=== PATIENT | male | born 1985 | race Caucasian/White ===

== ENCOUNTER 2023-12-10 20:55 | Emergency (ER) | payer BC, SELFPAY ==
[2023-12-10 21:01] VITALS: BP 139/88
--- NOTE | 2023-12-10 21:58 | ED.GENMED ---
History of Present Illness
General
Chief Complaint: Musculo-Skeletal Complaint
Source: patient
Time Seen by Provider: 12/10/23 21:45
Travel History
Have you had any contact with someone who has COVID-19?: No
Do you have any symptoms of coronavirus? Fever > 100 degrees, chills, cough, shortness of breath, sore throat, loss of taste or smell, muscle aches, or headache?: No
History of Present Illness
History of Present Illness:
38-year-old male presenting to the emergency department for evaluation of left knee injury sustained while playing volleyball stating he attempted to jump and felt a popping sensation and noticed deformity to the proximal portion of the patella. He
states he has significant pain when attempting knee flexion. Notes a history of some chronic pain to both knees but states this is very different. No other injury sustained.
Past History
Past History
ED Past Medical History: None
ED Past Surgical History: Cholecystectomy and Orthopedic
Social History
Tobacco: Non-smoker
Alcohol: Occasional
Drug: None
Personal:
Living: with family
Employment: Employed
Review of Systems
Review of Systems
All Other Systems: ROS reviewed and negative except as documented in HPI and ROS
Phy Exam
Physical Exam
Physical Exam:
GENERAL: Alert , in no apparent distress
EYE: conjunctiva clear
Head: Normocephalic atraumatic
NECK: Supple,
ENT: mmm.
LUNGS: no acute respiratory distress
NEUROLOGICAL: Alert and oriented
SKIN: Warm and dry, skin intact.
MUSCULOSKELETAL: Left knee: Deformity at the proximal patella. There does appear to be a deformity of the patella itself as well. Patient has limited range of motion with knee flexion secondary to the pain. There does appear to be a deformity at
the quadriceps tendon as well as the inferior portion of the patella tendon. Remainder of extremity is warm well-perfused and neurovascularly intact.
PSYCH: Normal and appropriate interaction.
Scores
Heart Failure Risk
Heart Failure Risk Score: Not Applicable
Heart Score for Chest Pain Patients
STEMI patient?: Not applicable
Withdrawal Assessment of Alcohol
Withdrawal Assessment Completed?: Not applicable
Course
Orders/Labs/Results
Orders:
Orders
12/10/23 21:06
Knee, Left 4 or More Views [CR Knee - Left 4 Or More View*] Urgent
Comment:
Reason For Exam: left knee pain, pt felt pop in knee cap
12/10/23 22:01
Crutches-Treatment ONCE
Knee Immobilizer Left-Treatmen ONCE
Vital Signs
Initial and Last Documented VS:
Initial Vital Signs
Temp Pulse Resp BP Pulse Ox
98.5 F 114 18 139/88 96
12/10/23 21:01 12/10/23 21:01 12/10/23 21:01 12/10/23 21:01 12/10/23 21:01
Last Documented Vital Signs
Temp Pulse Resp BP Pulse Ox
98.5 F 114 18 139/88 96
12/10/23 21:01 12/10/23 21:01 12/10/23 21:01 12/10/23 21:01 12/10/23 21:01
MDM/Problems Addressed
Differential Diagnosis Includes:
Patella tendon rupture, quadriceps tendon rupture, patella fracture
MDM/Problems Addressed:
38-year-old male present emergency department for evaluation of left knee pain and deformity while playing in a volleyball game stating he did not fall onto the knee but noticed deformity while attempting to jump. Based off patient's physical exam
I am most concerned for either quadriceps tendon injury or patella tendon injury. X-ray shows an avulsive injury of the patella and I do have concern for patella tendon rupture. Patient be placed in a knee immobilizer, crutches, NSAIDs/Tylenol for
pain. He will follow-up with [facility] orthopedics with whom he is seen before for previous knee injuries.
*Radiology
Radiology exam reviewed: preliminary read by ED provider (Patella fracture with concern for patella tendon rupture)
*Pulse Oximetry
Patient hypoxic: no
*Critical Care Note
Total Time (30-74mins, 75-104mins- exclusive of procedures): Not Applicable
ED Attending Note
-
Portions of this chart may have been created with voice recognition software.� Occasional wrong word or��sound alike� substitutions may have occurred due to the inherent limitations of voice recognition software.
Discharge Plan
Departure
Patient Disposition: Home (Routine Discharge)
Date of Disposition: 12/10/23
Time of Disposition: 21:59
Patient with high blood pressure during this ER visit?: Yes
Discharge Problem:
Fracture of left patella, injury of patella tendon
Instructions: Quadriceps and Patellar Tendon Injuries
Prescriptions:
No Action
diphenhydramine HCl [Banophen] 25 MG capsule
25 mg PO DAILY
multivitamin with folic acid [Tab-A-Gabriel] 1 TABLET tablet
1 tab PO DAILY
Referrals:
Prabhjot Herrera MD [Active] - (Ortho)
Interventions
Interventions:
*Risk Screen - Suicide Last Done: 12/10/23 21:01
*General Assessment Last Done: 12/10/23 21:01
*Neglect/Abuse Screening Last Done: 12/10/23 21:01
*ED COVID-19 Vaccine History Last Done: 12/10/23 21:41
Discharge Date and Time
Print Language: ROMANIAN
== END 2023-12-10 23:07 | disposition home or self-care (01) ==
LOC: EMR 20:55
PROVIDERS: EMERGENCY PHYSICIAN Emergency Medicine; FAMILY PHYSICIAN Family Medicine
DX: S82.002A Unspecified fracture of left patella, initial encounter for closed fracture (principal); X50.1XXA Overexertion from prolonged static or awkward postures, initial encounter; M76.52 Patellar tendinitis, left knee; Y93.68 Activity, volleyball (beach) (court)
CPT/HCPCS: 99283; 29505; 73564

== ENCOUNTER → 2023-12-12 13:23 | Outpatient (REF) | payer OTHER, SELFPAY | LOC: RAD 13:23 | PROVIDERS: ATTENDING PHYSICIAN Orthopaedic Surgery Sports Medicine; FAMILY PHYSICIAN Family Medicine | DX: Z01.818 Encounter for other preprocedural examination (principal) | CPT/HCPCS: 70030 ==